=== PATIENT | female | born 1945 | race Caucasian/White ===

== ENCOUNTER 2019-05-05 16:19 | Emergency (ER) | payer MEDICARE, OTHER ==
[2019-05-05] MEDS ORDERED: SODIUM CHLORIDE 0.9% (FLUSH) 10 ML SYG IV PRN (16:32)
[2019-05-05] MEDS ORDERED: SODIUM CHLORIDE 0.9% 1000ML 1,000 ML IVS ONE (16:33)
[2019-05-05] MEDS ORDERED: levoFLOXacin 500MG IV 500 MG in PREMIX BAG 1 BAG IVPB ONE (16:35)
[2019-05-05] MEDS ORDERED: MORPHINE SULFATE INJ 10 MG/ML VIAL IV ONE (16:36)
[2019-05-05] MEDS ORDERED: CLINDAMYCIN IV 600MG 50 ML IVPB ONE (16:53)
--- NOTE | 2019-05-05 17:18 | RAD ---
EXAM DESCRIPTION: Chest xr,1 View CLINICAL HISTORY: sob COMPARISON: None FINDINGS: Cardiac silhouette is within normal limits. There is an infusion catheter with the tip ending at the level of the right atrium. Blunted left costophrenic angle and increased opacity at the left lower lung may represent a combination of pleural fluid and atelectasis. Other etiologies including underlying parenchymal disease cannot be excluded. Recommend follow-up. There is no acute osseous process visualized. IMPRESSION: Blunted left costophrenic angle and increased opacity at the left lower lung may represent a combination of pleural fluid and atelectasis. Other etiologies including underlying parenchymal disease cannot be excluded. Recommend follow-up. Electronically signed by: Alli Sarmiento MD 05/05/2019 5:16 PM CDT
[2019-05-05] MEDS ORDERED: CLINDAMYCIN IV 600MG 600 MG in PREMIX BAG 1 BAG IVPB SCH (18:00)
--- NOTE | 2019-05-05 19:31 | CT ---
EXAM DESCRIPTION: Abdomen/Pelvis w/Contrast CLINICAL HISTORY: 73 years Female abdominal pain with fever and fatigue COMPARISON: None. TECHNIQUE: Contiguous axial images obtained through the abdomen and pelvis following IV contrast. Reformatted images obtained. This exam was performed according to our department optimization program which includes automated exposure control, adjustment of the mA and/or kv according to patient size and/or use of iterative reconstruction technique. FINDINGS: Central venous catheter tip is visualized in the region of the atrial caval junction. There is a small to moderate left pleural effusion with compressive atelectatic changes. Immediately beneath the left hemidiaphragm there is a gas and fluid collection which most likely represents an abscess collection. The collection measures approximately 8.6 cm in height by 8.2 cm transverse by 7.6 cm AP. 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 There are changes from laparotomy with skin dioni visualized in the anterior abdominal wall. There is gas and fluid in the anterior abdominal wall at the area of the laparotomy which could be from postsurgical change and seroma. An infected fluid collection is not excluded. There is an ostomy defect in the right abdomen with probable changes from partial colectomy. There are surgical clips in the pelvis. There is wall thickening in the remaining sigmoid colon which could be from inflammatory change. An infiltrating neoplasm cannot be excluded on this study and correlation with known clinical history is recommended. The liver appears unremarkable. The pancreatic tail is displaced anteriorly by the presumed left upper quadrant abscess collection. No adrenal masses. There is left renal cortical scarring. No hydronephrosis. The gallbladder is visualized. Atherosclerotic calcifications. No aneurysmal dilatation of the aorta. No bowel obstruction. The appendix is not visualized. There is a small amount of free fluid in the pelvis. There are likely small fibroids in the uterus. Degenerative changes in the spine. 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 There are changes from recent laparotomy with gas and fluid in the anterior abdominal wall at the site of the incision. This could be from postoperative change and seroma. Infected fluid collection is not excluded. There is an ostomy defect in the right abdomen with changes from partial colectomy. There is wall thickening in the sigmoid colon which may be inflammatory in nature. Correlation with known clinical history is recommended to exclude the possibility of an infiltrating mass. Small to moderate left pleural effusion with compressive atelectatic changes. Small amount of free fluid in the pelvis. There are likely fibroids in the uterus. Electronically signed by: Jerrod Mays MD 05/05/2019 7:29 PM CDT
[2019-05-05 20:39] VITALS: TEMP 98
--- NOTE | 2019-05-05 21:39 | ED.PDOC ---
History of Present Illness - General Chief Complaint: Post Op Problems Stated Complaint: Post operative pain/inflammation Time Seen by Provider: 05/05/19 16:27 - History of Present Illness Initial Comments: [place] get acute abdomen and had laparotomy 2 weeks back , today presented with redness and swelling around the dioni on the abdomen , no fever or chills , slight abdominal pain , no nausea or vomiting Severity: moderate Improving Factors: nothing Worsening Factors: nothing Associated Symptoms: denies symptoms Allergies/Adverse Reactions: Allergies Penicillins Allergy (Verified 08/04/13 14:12) Sulfa Antibiotics Allergy (Verified 08/04/13 14:12) Levofloxacin [From Levaquin] Adverse Reaction (Verified 05/05/19 16:48) Home Medications: Ambulatory Orders Acetaminophen [Tylenol] 100 mg PO BEDTIME PRN 05/05/19 Oxycodone HCl 10 mg PO Q4H PRN 05/05/19 Review of Systems - Review of Systems Constitutional: States: no symptoms reported EENTM: States: no symptoms reported Respiratory: States: no symptoms reported Cardiology: States: no symptoms reported Gastrointestinal/Abdominal: States: see HPI Genitourinary: States: no symptoms reported Musculoskeletal: States: no symptoms reported Skin: States: no symptoms reported Neurological: States: no symptoms reported Endocrine: States: no symptoms reported Hematologic/Lymphatic: States: no symptoms reported Past Medical History (General) - Patient Medical History Hx Stroke: No Hx of COPD: No Hx Cardiac Disorders: No Hx Hypertension: No Hx Diabetes: No Hx Cancer: No Surgical History: colectomy, other - Vaccination History Hx Influenza Vaccination: No Hx Pneumococcal Vaccination: No - Social History Hx Tobacco Use: No Hx Alcohol Use: Yes - Female History Patient is a Female of Child Bearing Age (10 -59 yrs old): No Patient : No Family Medical History - Family History Mother Family History: No Known Living Status: Physical Exam - Physical Exam General Appearance: Alert Eye Exam: bilateral normal Ears, Nose, Throat: hearing grossly normal Neck: non-tender, full range of motion, supple Respiratory: chest non-tender, lungs clear, normal breath sounds, no respiratory distress Cardiovascular/Chest: regular rate, rhythm Gastrointestinal/Abdominal: tenderness Extremity: normal range of motion, non-tender, normal inspection Neurologic: no motor/sensory deficits, alert, normal mood/affect, oriented x 3 Skin Exam: other - erythematous rash around the dioni Progress - Progress Progress: 05/05/19 21:43 case d/w Dr in the Er [facility] Dr [facility] agreed to accept the pt - Results/Orders Results/Orders: 05/05/19 16:32 Sodium Chloride 0.9% (Flush) [Saline Flush Syringe] 10 ml IV PRN PRN 05/05/19 16:33 Hold Metformin x 48Hrs [id number] 05/05/19 16:45 EKG STAT 05/05/19 17:36 BLOOD CULTURE Stat Laboratory Results WBC 11.5 K/mm3 (4.8-10.8) H 05/05/19 17:18 RBC 2.73 M/mm3 (4.20-5.40) L 05/05/19 17:18 Hgb 8.2 gm/dL (12.0-16.0) L 05/05/19 17:18 Hct 24.8 % (36.0-47.0) L 05/05/19 17:18 MCV 90.6 fl (81.0-99.0) 05/05/19 17:18 MCH 29.9 pg (27.0-31.0) 05/05/19 17:18 MCHC 33.0 g/dL (33.0-37.0) 05/05/19 17:18 RDW 13.7 % (11.5-14.5) 05/05/19 17:18 Plt Count 1168 K/mm3 (130-400) H 05/05/19 17:18 MPV 7.7 fl (7.40-10.4) 05/05/19 17:18 Absolute Neuts (auto) 8.00 K/uL (1.8-6.8) H 05/05/19 17:18 Absolute Lymphs (auto) 1.70 K/uL (1.0-3.4) 05/05/19 17:18 Absolute Monos (auto) 1.20 K/uL (0.2-0.8) H 05/05/19 17:18 Absolute Eos (auto) 0.10 K/uL (0.0-0.4) 05/05/19 17:18 Absolute Basos (auto) 0.60 K/uL (0.0-0.1) H 05/05/19 17:18 Neutrophils % 69.5 % (42.0-78.0) 05/05/19 17:18 Lymphocytes % 14.4 % (20.0-50.0) L 05/05/19 17:18 Monocytes % 10.2 % (2.0-9.0) H 05/05/19 17:18 Eosinophils % 0.8 % (1.0-5.0) L 05/05/19 17:18 Basophils % 5.1 % (0.0-2.0) H 05/05/19 17:18 RBC Morphology Plts gwen increased 3+giant platelets 05/05/19 17:18 RBC Morphology Plts gwen increased 3+giant platelets 05/05/19 17:18 Sodium 133 mmol/L (135-145) L 05/05/19 17:18 Potassium 4.4 mmol/L (3.6-5.0) 05/05/19 17:18 Chloride 99 mmol/L (101-111) L 05/05/19 17:18 Carbon Dioxide 22 mmol/L (21-31) 05/05/19 17:18 Anion Gap 16.4 (12-18) 05/05/19 17:18 BUN 11 mg/dL (7-18) 05/05/19 17:18 Creatinine 0.65 mg/dL (0.6-1.3) 05/05/19 17:18 BUN/Creatinine Ratio 16.9 (10-20) 05/05/19 17:18 Random Glucose 109 mg/dL (70-105) H 05/05/19 17:18 Serum Osmolality 266.4 mOsm/L (275-295) L 05/05/19 17:18 Lactic Acid 1.5 mmol/L (0.5-2.2) 05/05/19 17:18 Calcium 8.6 mg/dL (8.4-10.2) 05/05/19 17:18 Total Bilirubin 0.7 mg/dL (0.2-1.0) 05/05/19 17:18 AST 33 IU/L (10-42) 05/05/19 17:18 ALT 25 IU/L (10-60) 05/05/19 17:18 Alkaline Phosphatase 166 IU/L (42-121) H 05/05/19 17:18 Serum Total Protein 5.8 gm/dL (6.4-8.2) L 05/05/19 17:18 Albumin 2.5 g/dl (3.2-5.5) L 05/05/19 17:18 Globulin 3.3 gm/dL (2.3-3.5) 05/05/19 17:18 Albumin/Globulin Ratio 0.8 (1.1-1.9) L 05/05/19 17:18 Departure - Departure Clinical Impression: Abdominal abscess, Postoperative infection, Postoperative wound infection Disposition: Transfer to Hospital Departure Forms: ED Discharge - Pt. Copy, Patient Portal Self Enrollment Referrals: Darrel Love MD [Primary Care Provider] - 1-2 Weeks Home Medications: Ambulatory Orders Acetaminophen [Tylenol] 100 mg PO BEDTIME PRN 05/05/19 Oxycodone HCl 10 mg PO Q4H PRN 05/05/19
[2019-05-05 21:47] VITALS: BP 163/71; O2SAT 96
== END 2019-05-05 22:09 | disposition short-term general hospital (02) ==
LOC: ER 16:19
DX: T81.49XA Infection following a procedure, other surgical site, initial encounter (principal); Y83.8 Other surgical procedures as the cause of abnormal reaction of the patient, or of later complication, without mention of misadventure at the time of the procedure; Z88.0 Allergy status to penicillin; Z88.2 Allergy status to sulfonamides; Z88.1 Allergy status to other antibiotic agents
CPT/HCPCS: 36415; 71045; 74177; 80053; 83605; 85025; 87040; J2270; J3490; J7030

== ENCOUNTER 2019-07-29 18:32 | Emergency (ER) | payer MEDICARE, OTHER ==
--- NOTE | 2019-07-29 19:01 | ED.PDOC ---
History of Present Illness - General Time Seen by Provider: 07/29/19 18:59 Additional Information: Patient presents complaining of fever. History of HTN, ovarian cancer on chemo, last chemotherapy was 1.5 weeks ago. Having chills all day today and was under an electric blanket but does not have any specific symptoms or complaints. Home health nurse referred to ED for fever but the patient states that she had been under an electric blanket at the time. Took tylenol 3 this afternoon and motrin around 4, three hours prior to arrival. She feels well currently. Her sister recently had a cold but no fevers. No other complaints at this time. Review of Systems - Review of Systems Constitutional: States: chills, fever EENTM: States: no symptoms reported. Denies: nose pain, nose congestion, throat pain Respiratory: Denies: cough, short of breath Cardiology: Denies: chest pain, palpitations Gastrointestinal/Abdominal: Denies: abdominal pain, nausea, vomiting Genitourinary: Denies: discharge, dysuria, frequency, hematuria Musculoskeletal: Denies: back pain, muscle pain Skin: Denies: change in color, lesions, rash Endocrine: States: no symptoms reported Past Medical History (General) - Patient Medical History Hx Stroke: No Hx of COPD: No Hx Cardiac Disorders: No Hx Hypertension: No Hx Diabetes: No Hx Cancer: No - Vaccination History Hx Influenza Vaccination: No Hx Pneumococcal Vaccination: No - Social History Hx Tobacco Use: No Hx Alcohol Use: Yes - Female History Patient : No Family Medical History - Family History Mother Family History: No Known Living Status: Physical Exam - Physical Exam General Appearance: Alert, Comfortable, No apparent distress Eye Exam: bilateral normal ENT Exam: normal ENT inspection Neck: non-tender, full range of motion Respiratory: chest non-tender, lungs clear, normal breath sounds, no respiratory distress Cardiovascular/Chest: normal peripheral pulses, regular rate, rhythm, no edema, no murmur Gastrointestinal/Abdominal: normal bowel sounds, non tender, soft Extremity: normal range of motion, non-tender, normal inspection Neurologic: no motor/sensory deficits, alert, normal mood/affect, oriented x 3 Skin Exam: normal color Progress - Progress Progress: 07/29/19 20:32 Patient reassessed, she is afebrile and has no complaints. No significant leukocytosis or neutropenia. Blood and urine cultures are pending. No cough or fever and CXR improved over previous. No indication for antibiotics at this time, will continue outpatient observation and close follow up with her oncologist and primary care provider. Return indications reviewed. 07/29/19 22:11 MDM Patient presents to ED for fever. States that she was cold and fell asleep under an electric blanket and home healthcare nurse took her temperature and referred her for fever. She has been afebrile in the ED. No complaints suggestive of infection and no significant laboratory findings. Cultures pending, will continue outpatient follow up with PCP. Home care instructions and return indications reviewed. Departure - Departure Clinical Impression: Febrile illness Time of Disposition: 20:34 Disposition: Discharge to Home or Self Care Condition: Fair Departure Forms: ED Discharge - Pt. Copy, Patient Portal Self Enrollment Instructions: Fever, Adult (DC) Diet: resume usual diet Activity: increase activity as tolerated Referrals: Darrel Love MD [Primary Care Provider] - 1-2 Weeks Home Medications: Ambulatory Orders Acetaminophen [Tylenol] 100 mg PO BEDTIME PRN 05/05/19 Oxycodone HCl 10 mg PO Q4H PRN 05/05/19
[2019-07-29 19:16] VITALS: TEMP 98.8
--- NOTE | 2019-07-29 20:00 | RAD ---
EXAM DESCRIPTION: Chest,1 View CLINICAL HISTORY: 73 years Female cough, fever COMPARISON: May 05, 2019. TECHNIQUE: AP view of the chest was obtained. FINDINGS: Cardiac silhouette is mildly enlarged. Central vessels are noted increased. Right central venous catheter is present with the tip seen at the atrial caval junction. Decreasing pleural parenchymal opacity left lung base. No infiltrate or effusion on right. No pneumothorax. IMPRESSION: Mildly enlarged heart with no evidence for congestive heart failure. Decreasing infiltrate and atelectatic changes as well as effusion left lung base. Electronically signed by: Maritza Rowan MD 07/29/2019 7:59 PM CARDIOVASCULAR RADIOLOGIC TECHNOLOGIST
[2019-07-29 20:10] VITALS: BP 92/54; O2SAT 94
== END 2019-07-29 20:40 | disposition home or self-care (01) ==
LOC: ER 18:32
DX: R50.9 Fever, unspecified (principal); C56.9 Malignant neoplasm of unspecified ovary; I10 Essential (primary) hypertension; Z92.21 Personal history of antineoplastic chemotherapy

== ENCOUNTER → 2020-01-10 | Outpatient (CLI) | payer MEDICARE, OTHER | LOC: LAB.O 15:10 | PROVIDERS: ATTEND Internal Medicine Medical Oncology | DX: D64.81 Anemia due to antineoplastic chemotherapy (principal) ==

== ENCOUNTER → 2020-02-10 | Outpatient (CLI) | payer MEDICARE, OTHER | LOC: LAB.O 16:20 | PROVIDERS: ATTEND Internal Medicine Medical Oncology | DX: D64.81 Anemia due to antineoplastic chemotherapy (principal) ==

== ENCOUNTER → 2020-07-15 | Outpatient (CLI) | payer MEDICARE, OTHER | LOC: LAB.O 12:02 | PROVIDERS: ATTEND Internal Medicine Medical Oncology | DX: C54.1 Malignant neoplasm of endometrium (principal); D64.81 Anemia due to antineoplastic chemotherapy ==